=== PATIENT | male | born 1985 | race African-American/Black ===

== ENCOUNTER 2016-05-02 23:07 | Emergency (ER) | payer MEDICAID, OTHER ==
[~2016-05-02] VITALS: Ht 175.3 cm; Wt 80.1 kg
[~2016-05-02 23:07] MED LIST: AMOX500T PO; DICL50 PO
[2016-05-02 23:14] VITALS: BP 124/89; PULSE 70; RESP 16; TEMP 98.5; O2SAT 100
== END 2016-05-03 01:03 | disposition left against medical advice (07) ==
LOC: PHED 23:07
DX: R68.89 Other general symptoms and signs (principal)
CPT/HCPCS: 99281

== ENCOUNTER 2016-05-13 21:51 | Emergency (ER) | payer MEDICAID ==
[~2016-05-13] VITALS: Ht 175.3 cm; Wt 77.3 kg
[2016-05-13 21:52] VITALS: BP 128/80; PULSE 70; RESP 16; TEMP 97.9; O2SAT 99
--- NOTE | 2016-05-13 22:47 | PD ---
HPI Chief Complaint: Oral / Dental Pain or Problem Time Seen by Provider: 22:39 Travel History International Travel<30 days: No Contact w/Intl Traveler<30days: No Traveled to known affect area: No History of Present Illness HPI 30-year-old black male presents to emergency Department with complaints of dental pain. He states that he said dental pain homicidal daily basis for quite some time. The pain is just gotten worse this past week. He points to the left upper maxilla as a source of pain. He denies any fever chills. No difficulty swallowing. Pain is moderate. No palliative activity. Worse with chewing and cold. PFSH Past Medical History Anxiety: Yes Immunizations Current: Yes Seizures: Yes (NO MEDS SINCE 1999/NO SEIZURES SINCE) Tetanus Vaccination: Unknown Influenza Vaccination: No Past Surgical History Surgical History: No Previous Surgery Abdominal Surgery: Yes (Hernia as ) Social History Alcohol Use: No Tobacco Use: Yes (1ppd) Substance Use: No Allergies-Medications (Allergen,Severity, Reaction): Coded Allergies: No Known Allergies (Verified , 05/13/16) Reported Meds & Prescriptions Reported Meds & Active Scripts Active No Active Prescriptions or Reported Medications Review of Systems Except as stated in HPI: all other systems reviewed are Neg General / Constitutional: No: Fever, Chills Eyes: No: Blurred Vision, Photophobia HENT: Positive: Dental Difficulties, No: Gingival Bleeding, Ear Discharge, Earache Cardiovascular: No: Chest Pain or Discomfort, Palpitations Respiratory: No: Cough, Shortness of Breath Gastrointestinal: No: Nausea, Vomiting Physical Exam Narrative GENERAL: Well-nourished, well-developed patient. SKIN: Warm and dry. HEAD: Normocephalic. EYES: No scleral icterus. No injection or drainage. NECK: Supple, trachea midline. No JVD or lymphadenopathy. ENT: Patient has multiple dental caries. He points to his left upper maxilla social pain. He is some gingival erythema. He has multiple dental caries. CARDIOVASCULAR: Regular rate and rhythm without murmurs, gallops, or rubs. RESPIRATORY: Breath sounds equal bilaterally. No accessory muscle use. GASTROINTESTINAL: Abdomen soft, non-tender, nondistended. MUSCULOSKELETAL: No cyanosis, or edema. BACK: Nontender without obvious deformity. No CVA tenderness. Data Data Last Documented VS Vital Signs Date Time Temp Pulse Resp B/P Pulse Ox O2 Delivery O2 Flow Rate FiO2 2/27/17 21:52 97.9 70 16 128/80 99 MDM Medical Decision Making Medical Screen Exam Complete: Yes Emergency Medical Condition: Yes Medical Record Reviewed: Yes Differential Diagnosis MDM: Moderate Differential diagnoses: Dental abscess, dental caries, osteitis, cellulitis Narrative Course Patient's given amoxicillin 1 g by mouth and Lortab 5 a grams by mouth. This is dental caries, dentalgia Diagnosis Primary Impression: Dental caries Additional Impression: Dentalgia Patient Instructions: Narcotic given in the ED, General Instructions Additional Instructions: Rest. Saltwater gargles. Glouster oil on cotton balls. Amoxicillin and diclofenac. follow-up with a dentist as soon as possible. And return to the ER if any problems. Med/Other Pt SpecificInfo: Prescription(s) given Scripts No Active Prescriptions or Reported Meds Disposition: 01 DISCHARGE HOME Condition: Stable Vincent Briceno May 13, 2016 22:46
[2016-05-13] MEDS ORDERED: AMOX500T PO (22:48)
[2016-05-13] MEDS ORDERED: DICL50TA3 PO (22:48)
[2016-05-13] MEDS ORDERED: ACETAMINOPHEN/HYDROcodone 325 MG/5 MG TAB PO ONE (23:00)
[2016-05-13] MEDS ORDERED: AMOXICILLIN (TRIHYDRATE) 500 MG CAP PO ONE (23:00)
== END 2016-05-13 23:07 | disposition home or self-care (01) ==
LOC: NEPB 21:51
DX: K02.9 Dental caries, unspecified (principal); K08.89 Other specified disorders of teeth and supporting structures; F17.200 Nicotine dependence, unspecified, uncomplicated; Z86.59 Personal history of other mental and behavioral disorders; Z86.69 Personal history of other diseases of the nervous system and sense organs
CPT/HCPCS: 99282

== ENCOUNTER 2016-08-05 13:15 | Emergency (ER) | payer SELFPAY ==
[~2016-08-05] VITALS: Ht 175.3 cm; Wt 79.0 kg
[~2016-08-05 13:15] MED LIST changes: -DICL50 PO; +DICL50TA3 PO
[2016-08-05 13:16] VITALS: BP 116/64; PULSE 80; RESP 15; TEMP 98.2; O2SAT 98
[2016-08-05 13:20] VITALS: RESP 18
--- NOTE | 2016-08-05 14:01 | PD ---
HPI Chief Complaint: Oral / Dental Pain or Problem Time Seen by Provider: 13:40 Travel History International Travel<30 days: No Contact w/Intl Traveler<30days: No Traveled to known affect area: No History of Present Illness HPI 30-year-old male with no significant past medical history presents the emergency department for right upper dental pain and swelling. Patient reports he started having dental pain 5 days ago. He reports when he woke up this morning in the right side of his face was swollen. He reports he has a fractured decayed tooth on the affected side. He denies fever, nausea, vomiting , or difficulty swelling. FOR[facility]LY [facility] Past Medical History Medical History: Denies Significant Hx Anxiety: Yes ?: Not Past Surgical History Abdominal Surgery: Yes (Hernia as ) Social History Alcohol Use: No Tobacco Use: Yes (1ppd) Substance Use: No Allergies-Medications (Allergen,Severity, Reaction): Coded Allergies: No Known Allergies (Verified , 08/05/16) Reported Meds & Prescriptions Reported Meds & Active Scripts Active Review of Systems Except as stated in HPI: all other systems reviewed are Neg Physical Exam Narrative GENERAL: Well-nourished, well-developed patient. SKIN: Focused skin assessment warm/dry. HEAD: Normocephalic. Oral: Mild right-sided facial swelling. Dental decay of tooth #3 with surrounding gum erythema. EYES: No scleral icterus. No injection or drainage. NECK: Supple, trachea midline. No JVD or lymphadenopathy. CARDIOVASCULAR: Regular rate and rhythm without murmurs, gallops, or rubs. RESPIRATORY: Breath sounds equal bilaterally. No accessory muscle use. GASTROINTESTINAL: Abdomen soft, non-tender, nondistended. MUSCULOSKELETAL: No cyanosis, or edema. BACK: Nontender without obvious deformity. No CVA tenderness. Data Data Last Documented VS Vital Signs Date Time Temp Pulse Resp B/P Pulse Ox O2 Delivery O2 Flow Rate FiO2 08/05/16 13:20 18 08/05/16 13:16 98.2 80 116/64 98 MDM Medical Decision Making Medical Screen Exam Complete: Yes Emergency Medical Condition: Yes Differential Diagnosis Dental Lalitha, dental abscess, fractured tooth Narrative Course 30-year-old male presents the emergency department with five-day history of right upper dental pain and mild facial swelling swelling. Patient denies fever , chills, or any other complaint. Patient will be treated for dental abscess and referred to dental clinic for follow-up. Diagnosis Primary Impression: Dental abscess Referrals: Primary Care Physician Patient Instructions: Dental Abscess (ED), General Instructions Scripts Amoxicillin 500 Mg [id number] Mg PO TID #21 TAB Ref 0 Prov:Almaz Chan 08/05/16 Ibuprofen (Motrin Ib)200 Mg [id number] Mg PO Q8HR PRN (PAIN SCALE 1 TO 5) #20 TAB Prov:Almaz Chan 08/05/16 Disposition: 01 DISCHARGE HOME Condition: Stable Almaz Chan August 05, 2016 14:01
[2016-08-05] MEDS ORDERED: MOTR200T4 PO (14:10)
[2016-08-05] MEDS ORDERED: CEPH-460 PO (14:10)
[2016-08-05] MEDS ORDERED: AMOX500T PO (14:11)
[2016-08-05] MEDS ORDERED: IBUPROFEN 800 MG TAB PO ONE (14:30)
== END 2016-08-05 14:28 | disposition home or self-care (01) ==
LOC: NEPK 13:15
DX: K04.7 Periapical abscess without sinus (principal); F17.210 Nicotine dependence, cigarettes, uncomplicated
CPT/HCPCS: 99283

== ENCOUNTER 2017-07-06 09:27 | Emergency (ER) | payer MEDICAID ==
[~2017-07-06] VITALS: Ht 175.3 cm; Wt 75.0 kg
[~2017-07-06 09:27] MED LIST changes: -DICL50TA3 PO; +MOTR200T4 PO
[2017-07-06 09:29] VITALS: BP 107/62; PULSE 91; RESP 16; TEMP 99.3; O2SAT 97
--- NOTE | 2017-07-06 09:49 | PD ---
HPI Chief Complaint: Complaint Time Seen by Provider: 09:36 Travel History International Travel<30 days: No Contact w/Intl Traveler<30days: No Traveled to known affect area: No History of Present Illness HPI 31-year-old male here with low back pain 2 days. He also reports mild dysuria. No penile discharge. His mother told him this could be problems with his kidneys therefore he came in for evaluation. He is concerned because he reports "I do not drink any water". Denies fever, chills, abdominal pain, nausea or vomiting. No history of kidney disease. No history of renal stones. No prior UTIs. Symptom severity is moderate. No aggravating or alleviating factors. PFSH Past Medical History Anxiety: Yes Immunizations Current: Yes Seizures: Yes (NO MEDS SINCE 1999/NO SEIZURES SINCE) Tetanus Vaccination: > 5 Years Influenza Vaccination: No Past Surgical History Surgical History: No Previous Surgery Abdominal Surgery: Yes (Hernia as infant) Social History Alcohol Use: Yes (OCC) Tobacco Use: Yes (1ppd) Substance Use: No Allergies-Medications (Allergen,Severity, Reaction): Coded Allergies: No Known Allergies (Verified Allergy, Unknown, 07/06/17) Reported Meds & Prescriptions Reported Meds & Active Scripts Active Keflex (Cephalexin) 500 Mg Cap 500 Mg PO Q12H 7 Days Amoxicillin 500 Mg Tab 500 Mg PO TID Review of Systems Except as stated in HPI: all other systems reviewed are Neg General / Constitutional: No: Fever Eyes: No: Visual changes HENT: No: Headaches Cardiovascular: No: Chest Pain or Discomfort Respiratory: No: Shortness of Breath Gastrointestinal: No: Abdominal Pain Genitourinary: Positive: Dysuria Skin: No Rash Physical Exam Narrative GENERAL: Alert, well-appearing 31-year-old male in no distress SKIN: Warm and dry. HEAD: Normocephalic. EYES: No scleral icterus. No injection or drainage. NECK: Supple, trachea midline. CARDIOVASCULAR: Regular rate and rhythm without murmurs, gallops, or rubs. RESPIRATORY: Breath sounds equal bilaterally. No accessory muscle use. GASTROINTESTINAL: Abdomen soft, non-tender, nondistended. MUSCULOSKELETAL: No cyanosis, or edema. Normal strength and sensation in lower extremities BACK: No CVA tenderness. Mild tenderness to the lumbar paravertebral musculature. Data Data Last Documented VS Vital Signs Date Time Temp Pulse Resp B/P (MAP) Pulse Ox O2 Delivery O2 Flow Rate FiO2 07/06/17 09:29 99.3 91 16 107/62 (77) 97 Orders Orders Urinalysis - C+S If Indicated (07/06/17 09:31) Basic Metabolic Panel (Bmp) (07/06/17 09:39) Complete Blood Count With Diff (07/06/17 09:39) Urine Culture (07/06/17 09:35) Ceftriaxone Inj (Rocephin Inj) (07/06/17 10:15) Ed Discharge Order (07/06/17 10:13) Lidocaine Pf 1% Inj (Xylocaine-Mpf 1% In (07/06/17 10:30) Lidocaine Pf 1% Inj (Xylocaine-Mpf 1% In (07/06/17 10:30) Labs Laboratory Tests Test 07/06/17 09:35 07/06/17 09:45 Urine Collection Type CLEAN CATCH Urine Color YELLOW Urine Turbidity SL CLOUDY Urine pH 6.0 Urine Specific [place] 1.020 Urine Protein 30 mg/dL Urine Glucose (UA) NEG mg/dL Urine Ketones TRACE mg/dL Urine Occult Blood NEG Urine Nitrite NEG Urine Bilirubin NEG Urine Urobilinogen 0.2 MG/DL Urine Leukocyte Esterase SMALL Urine RBC 4-9 /hpf Urine WBC 25-49 /hpf Urine WBC Clumps FEW Urine Squamous Epithelial Cells 6-8 /hpf Urine Amorphous Sediment FEW Urine Bacteria FEW /hpf Microscopic Urinalysis Comment CULTURE INDICATED Urine Collection Time 0935 White Blood Count 4.5 TH/MM3 Red Blood Count 4.76 MIL/MM3 Hemoglobin 14.4 GM/DL Hematocrit 43.1 % Mean Corpuscular Volume 90.6 FL Mean Corpuscular Hemoglobin 30.3 PG Mean Corpuscular Hemoglobin Concent 33.5 % Red Cell Distribution Width 12.8 % Platelet Count 141 TH/MM3 Mean Platelet Volume 8.4 FL Neutrophils (%) (Auto) 74.5 % Lymphocytes (%) (Auto) 9.3 % Monocytes (%) (Auto) 15.6 % Eosinophils (%) (Auto) 0.2 % Basophils (%) (Auto) 0.4 % Neutrophils # (Auto) 3.4 TH/MM3 Lymphocytes # (Auto) 0.4 TH/MM3 Monocytes # (Auto) 0.7 TH/MM3 Eosinophils # (Auto) 0.0 TH/MM3 Basophils # (Auto) 0.0 TH/MM3 CBC Comment DIFF FINAL Differential Comment Blood Urea Nitrogen 11 MG/DL Creatinine 1.10 MG/DL Random Glucose 83 MG/DL Calcium Level 8.4 MG/DL Sodium Level 137 MEQ/L Potassium Level 3.7 MEQ/L Chloride Level 104 MEQ/L Carbon Dioxide Level 25.5 MEQ/L Anion Gap 8 MEQ/L Estimat Glomerular Filtration Rate 95 ML/MIN MDM Medical Decision Making Medical Screen Exam Complete: Yes Emergency Medical Condition: Yes Interpretation(s) CBC: No leukocytosis. Platelets 141 down slightly from 149 back in 2013. BMP: BUN/Cr 01/15.1 UA: Positive leukocyte Estrace,4-9 RBCs, 25-49 WBC, few white blood cell clumps , few bacteria. Urine culture pending Differential Diagnosis UTI, pyelonephritis, acute kidney injury, dehydration, renal stone unlikely Narrative Course 31-year-old male with dysuria and low back pain 2 days. He is nontoxic appearing. Vital signs are stable. No CVA tenderness. CBC showed no leukocytosis. Platelets slightly low at 141 this is relatively unchanged since 2013. Chemistry shows no electrolyte abnormality. BUN/creatinine normal. UA suggestive of UTI. He will be treated with antibiotics. He was instructed to follow-up with his primary doctor regarding platelets. Diagnosis Primary Impression: UTI (urinary tract infection) Qualified Codes: N30.01 - Acute cystitis with hematuria Referrals: [facility] Primary Care Physician Additional Instructions: Antibiotics as directed. Follow-up with your primary doctor. Drink plenty of fluids. Return if he develop new or worsening symptoms. Scripts Cephalexin (Keflex) 500 Mg Cap 500 MG PO Q12H for Infection for 7 Days, #14 CAP 0 Refills Prov: Almaz Chan 07/06/17 Disposition: DISCHARGE HOME Condition: Stable Almaz Chan Jul 06, 2017 09:49
[2017-07-06 09:54] LABS: BILIRUBIN, URINE NEG (NEG); BLOOD, URINE NEG (NEG); GLUCOSE,URINE NEG (NEG); KETONE, URINE TRACE mg/dL (NEG); NITRITE,URINE NEG (NEG); URINE COLOR YELLOW (YELLW/STRAW); URINE LEUKOCYTE ESTERASE SMALL (NEG)
[2017-07-06 09:54] LABS: AUTOMATED NEUTROPHIL # 3.4 TH/MM3 (1.8-7.7); BASOPHIL % 0.4 % (0.0-2.0); EOSINOPHIL % 0.2 % (0.0-4.0); HEMATOCRIT 43.1 % (39.0-51.0); HEMOGLOBIN 14.4 GM/DL (13.0-17.0); LYMPH % 9.3 % (9.0-44.0); LYMPHOCYTE # 0.4 TH/MM3 (1.0-4.8); MEAN CELL VOLUME 90.6 FL (80.0-100.0); MEAN CORPUSCULAR HEMOGLOBIN 30.3 PG (27.0-34.0); MEAN CORPUSCULAR HGB CONC 33.5 % (32.0-36.0); MEAN PLATELET VOLUME 8.4 FL (7.0-11.0); MONO % 15.6 % (0.0-8.0); MONOCYTE # 0.7 TH/MM3 (0-0.9); NEUT % 74.5 % (16.0-70.0); PLATELET COUNT 141 TH/MM3 (150-450); RED BLOOD COUNT 4.76 MIL/MM3 (4.50-5.90); RED CELL DISTRIBUTION WIDTH 12.8 % (11.6-17.2); WHITE BLOOD COUNT 4.5 TH/MM3 (4.0-11.0)
[2017-07-06 10:00] LABS: AMORPHOUS SEDIMENT, URINE FEW; BACTERIA, URINE FEW /hpf; WHITE BLOOD CELL CLUMPS FEW
[2017-07-06 10:01] LABS: CALCIUM 8.4 MG/DL (8.5-10.1)
[2017-07-06 10:02] LABS: BICARBONATE 25.5 MEQ/L (21.0-32.0)
[2017-07-06 10:05] LABS: CREATININE 1.1 MG/DL (0.60-1.30)
[2017-07-06] MEDS ORDERED: CEPH-460 PO (10:12)
[2017-07-06] MEDS ORDERED: LIDOCAINE HCL 1% 50 ML VIAL IM ONE (10:15)
[2017-07-06] MEDS ORDERED: LIDOCAINE HCL 1% PF 30 ML VIAL OTHER ONE ×2 (10:30)
[2017-07-06] MEDS ORDERED: LIDOCAINE HCL 1% PF 10 ML VIAL OTHER ONE ×2 (10:30)
== END 2017-07-06 11:14 | disposition home or self-care (01) ==
LOC: PHED 09:27
DX: N39.0 Urinary tract infection, site not specified (principal); F41.9 Anxiety disorder, unspecified; F17.200 Nicotine dependence, unspecified, uncomplicated; Z86.69 Personal history of other diseases of the nervous system and sense organs
CPT/HCPCS: 80048; 81001; 85025; 87086; 96372; 99283; J0696